=== PATIENT | male | born 1995 | race Caucasian/White ===

== ENCOUNTER 2019-02-13 15:20 | Emergency (ER) | payer MEDICARE ==
[2019-02-13 15:55] LABS: #Basophils 0.1 thou/uL (0.0-0.2); #Eosinphils 0.5 thou/uL (0.0-0.7); #Lymphocytes 2.4 thou/uL (1.20-3.40); #Monocytes 0.9 thou/uL (0.11-0.59); %Basophils 0.9 % (0.0-1.0); %Eosinophils 5.4 % (0.0-10.0); %Lymphocytes 26.7 % (21.0-51.0); %Monocytes 10.5 % (0.0-10.0); %Neutrophils 56.5 % (42.0-75.0); Hemoglobin 15.5 g/dL (14.0-18.0); Mean Corpuscular HGB CONC 31.7 g/dL (32.0-36.0); Mean Corpuscular Hemoglobin 28.6 pg (27.0-31.0); Mean Corpuscular Volume 90.3 fL (78.0-98.0); Mean Platelet Volume 7.1 fL (7.4-10.4); Platelet Count 362 thou/uL (130-400); RBC Distribution Width 12.7 % (11.5-14.5); Red Blood Cell (RBC) Count 5.42 mill/uL (4.70-6.10); White Blood Cell (WBC) Count 8.8 thou/uL (4.8-10.8)
[2019-02-13 16:10] LABS: Bilirubin Negative (Negative); Blood, Urine Negative (Negative); Clarity Hazy (Clear); Glucose, Urine (Dipstick) Negative (Negative); Leukocyte Negative (Negative); Nitrite Negative (Negative); Protein, Urine (Dipstick) Negative (Neg-Trace); Urobilinogen 0.2 mg/dL (Less than 2)
[2019-02-13 16:14] LABS: ALT (SGPT) 18 U/L (8-55); AST (SGOT) 21 U/L (5-34); Albumin 4.2 g/dL (3.5-5.0); Alkaline Phosphatase 106 U/L (40-110); Anion Gap 12 mmol/L (10-20); BUN (Urea Nitrogen) 16 mg/dL (8.9-20.6); Bilirubin, Total 0.7 mg/dL (0.2-1.2); Calc. Creatinine Clearance 0 mL/min (70-130); Calcium 10.3 mg/dL (7.8-10.44); Carbon Dioxide 30 mmol/L (22-29); Chloride 105 mmol/L (98-107); Estimated GFR-MDRD Greater than 90; Globulin 2.2 g/dL (2.4-3.5); Glucose 88 mg/dL (70-105); Lipase 69 U/L (8-78); Protein, Total 6.4 g/dL (6.0-8.3); Sodium 143 mmol/L (136-145)
== END 2019-02-13 16:29 | disposition home or self-care (01) ==
LOC: MADERS 15:20
DX: R10.32 Left lower quadrant pain (principal); F84.0 Autistic disorder
CPT/HCPCS: 36415; 80053; 81003; 83690; 85025; 99284

== ENCOUNTER 2019-03-01 08:30 | Outpatient (CLI) | payer MEDICARE ==
[2019-03-01] MEDS ORDERED: Iopamidol 370 76% 100 ML VIAL ONE (09:37)
--- NOTE | 2019-03-01 09:44 | CT ---
CT ABDOMEN AND PELVIS WITH IV CONTRAST 03/01/2019 CLINICAL INFORMATION: Left upper quadrant abdominal pain for 4 weeks with nausea and vomiting. COMPARISON: None. Technique: Multiple contiguous axial CT images are obtained through the abdomen and pelvis with IV contrast. Cor onal reformatted images are provided. FINDINGS: Lower Chest: Lung bases are clear. Vessels: Abdominal aorta is normal in caliber without evidence of an aortic dissection. Iliac arterie s are obscured due to significant artifact from metallic foreign bodies within the left lower abdomen and pelvis Abdomen: Portal vein:Patent Gallbladder: Within normal limits for CT imaging. Liver: within normal limits. Spleen: within normal limits. Pancreas: within normal limits. Adrenals: within normal limits. Kidneys: Subcentimeter too small to characterize hypodense lesion is seen in the midportion left kidn ey. There is nonspecific pelvocaliectasis seen on the left. Right kidney has a normal CT appearance. Bowel: There are innumerable metallic foreign bodies seen within the left lower quadrant and left upp er pelvis resulting in significant artifact. Although there is significant artifact limiting adequate evaluation, the metallic foreign bodies are thought to be within the lumen of the stomach. O ne of the foreign bodies with has less metallic artifact is seen within the lumen of the body of the stomach. There are also irregular low-density areas with patient increased density in the region of the pylorus of the stomach also probably secondary to additional radiopaque foreign bodies. The visualized loops of small bowel are normal in caliber. Contrast is seen in loops of small bowel. Appendix: Unable to be evaluated due to significant artifact from the metallic foreign bodies. Peritoneum: No ascites or free air; no fluid collection. Mesentery and Retroperitoneum: No enlarged mesenteric or retroperitoneal lymph nodes. Abdominal Wall: within normal limits. Pelvis: Reproductive Organs: No pelvic masses. Pelvis within normal limits. Bladder: Mostly decompressed. Bones: within normal limits. IMPRESSION: Innumerable metallic foreign bodies with large oval shaped metallic foreign bodies as well as additio nal much smaller metallic foreign bodies seen overlying the left abdomen, left lower quadrant and left upper pelvis. These metallic foreign bodies are thought to most likely be totally within the lum en of the stomach. Due to the significant artifact, this is difficult to definitively determine. However, there is a foreign body with less artifact present which is located within the lumen of the stomach.
== END 2019-03-01 08:31 | disposition home or self-care (01) ==
LOC: MADCT 08:30
PROVIDERS: ATTEND Family Medicine
DX: R10.12 Left upper quadrant pain (principal); T18.8XXA Foreign body in other parts of alimentary tract, initial encounter
CPT/HCPCS: 74177; Q9967

== ENCOUNTER 2019-07-13 13:27 | Outpatient (CLI) | payer MEDICARE ==
--- NOTE | 2019-07-13 14:06 | RAD ---
XR Knee Rt 4 View STANDARD HISTORY: Right anterior knee pain, injury FINDINGS: No fracture or dislocation is identified.
== END 2019-07-13 13:28 | disposition home or self-care (01) ==
LOC: MADRAD 13:27
PROVIDERS: ATTEND Family Medicine
DX: M25.561 Pain in right knee (principal)

== ENCOUNTER 2021-01-24 15:14 | Outpatient (CLI) | payer MEDICARE ==
[2021-01-24] MEDS ORDERED: Iopamidol 370 76% 100 ML VIAL IV ONE (15:15)
== END 2021-01-24 15:15 | disposition home or self-care (01) ==
LOC: MADLAB 15:14 → MADCT 15:15
PROVIDERS: ATTEND Family Medicine
DX: R14.0 Abdominal distension (gaseous) (principal); R10.9 Unspecified abdominal pain
CPT/HCPCS: 74177; Q9967